=== PATIENT | female | born 1940 | race Two or more races ===

== ENCOUNTER 2019-02-14 23:14 | Inpatient (IN) | payer MEDICARE, MEDICAID ==
[~2019-02-14] VITALS: Ht 157.5 cm; Wt 65.3 kg
--- NOTE | 2019-02-14 23:45 | NUR ---
BIBDEDE FROM HOME FOR MEDICAL CLEARANCE. PER DAUGHTER, IS NOT MED COMPLAINT HX DM, AND PUSHED DAUGHTER AND STATES "I WILL KILL MYSELF IF YOU TAKE ME TO A HOSPITAL" PT WAS PLACED ON 5150 HOLD PER CLOTH SHRINKING TESTER. PT AOX2 RR EVEN AND UNLABORED. NO SOB NOTED. NO NVD AT THIS TIME. PT APPEARS COMFORTABLE AND COMPLIANT. WAITING FOR MD BADILLO.
--- NOTE | 2019-02-14 23:51 | NUR ---
LAB AT BEDSIDE FOR BLOOD DRAW
[2019-02-14 23:55] LABS: BASOPHILS # (AUTO) 0.1 /CMM (0.0-0.2); BASOPHILS % (AUTO) 1.2 % (0.0-2.0); EOSINOPHILS % (AUTO) 0.6 % (0.0-6.0); HEMATOCRIT 41 % (33-45); HEMOGLOBIN 13.5 g/dL (11.5-14.8); LYMPHOCYTES % (AUTO) 20.8 % (20.0-44.0); MEAN CORPUSCULAR HGB CONC 33 g/dl (31.0-36.0); MEAN CORPUSCULAR VOLUME 87 fL (82-100); MONOCYTES # (AUTO) 0.7 /CMM (0.1-1.30); MONOCYTES % (AUTO) 6.9 % (2.0-12.0); NEUTROPHILS # (AUTO) 6.9 /CMM (1.8-8.9); NEUTROPHILS % (AUTO) 70.5 % (43.0-81.0); PLATELET COUNT (AUTO) 264 /CMM (150-450); RED BLOOD CELL COUNT(AUTO) 4.71 MIL/uL (4.0-5.2); WHITE BLOOD COUNT (AUTO) 9.7 K/uL (4.3-11.0)
--- NOTE | 2019-02-15 00:08 | NUR ---
PROVIDED PT WITH UA CUP, PT RECEIVED INSTRUCTIONS AND VERBALIZED UNDERSTANDING.
[2019-02-15 00:09] LABS: ALANINE AMINOTRANSFERASE 27 U/L (12-78); ALBUMIN 3.8 g/dL (3.4-5.0); ALCOHOL, BLOOD < 3 mg/dL (0-0); ALKALINE PHOSPHATASE 94 U/L (46-116); ASPARTATE AMINOTRANSFERASE 22 U/L (15-37); BILIRUBIN,DIRECT 0.2 mg/dL (0.0-0.2); BILIRUBIN,TOTAL 0.7 mg/dL (0.2-1.0); CALCIUM, SERUM 9.4 mg/dL (8.5-10.1); CARBON DIOXIDE 26 mmol/L (21-32); CHLORIDE 104 mmol/L (98-107); CREATININE 1.1 mg/dL (0.6-1.3); GLUCOSE 172 mg/dL (74-106); SODIUM SERUM 140 mmol/L (136-145); TOTAL PROTEIN, SERUM 7.9 g/dL (6.4-8.2); UREA NITROGEN, BLOOD 27 mg/dL (7-18)
[2019-02-15 00:10] LABS: ACETAMINOPHEN 0 ug/ml (10-30); SALICYLATE 0.7 mg/dL (2.8-20.0)
--- NOTE | 2019-02-15 00:13 | NUR ---
URINE COLLECTED, CALLED LAB FOR DIRECTOR DATA ARCHITECTURE, SPOKE TO ROGER.
--- NOTE | 2019-02-15 00:18 | NUR ---
PT ASSIGNED TO 211-B
[2019-02-15 00:24] LABS: APPEARANCE,URINE Clear (CLEAR); BILIRUBIN,URINE Negative (NEGATIVE); BLOOD, URINE Negative Ery/uL (NEGATIVE); COLOR,URINE Yellow (YELLOW); KETONES,URINE 15 (NEGATIVE); LEUKOCYTE ESTERASE ,URINE Trace (NEGATIVE); NITRITE, URINE Negative (NEGATIVE); PROTEIN,URINE Negative (NEGATIVE); UGLUCOSE 500 MG/DL mg/dL (NEGATIVE); UROBILINOGEN,URINE 0.2 EU/dL (0.2)
--- NOTE | 2019-02-15 00:31 | NUR ---
REPORT GIVEN SANDEEP CASTRO.
--- NOTE | 2019-02-15 01:00 | NUR ---
ADMITTED A 78 Y/O FEMALE FROM HOME AND EVALUATED AT [facility], ON 5150 HOLD DTS AND DTS. PATIENT ADMITTING DX. OF PSYCHOSIS AND MEDICAL DX. OF DM. UPON FACE TO FACE EVALUATION, PATIENT APPEARED ALERT AND ORIENTED X 2, CALM, SILENT, COOPERATIVE, WITHDRAWN, NO SOB, NO ACUTE DISTRESS, BREATHING EVEN AND UNLABORED, NO S/S OF PAIN AND DISCOMFORT, HEAD TO TOE ASSESSMENT DONE. SKIN INTACT. PATIENT UNABLE TO SIGN PAPER WORKS, BELONGINGS COLLECTED FOR CONTRABAND CHECK. NOTIFIED DR. MONTALVO OF THE ADMISSION. DAUGHTER AWARE. KEPT CLEAN, DRY AND COMFORTABLE. WILL CONTINUE TO MONITOR [id number] FOR SAFETY.
[2019-02-15 01:09] LABS: BACTERIA,URINE Few /HPF (None Seen); RBC,URINE 0-2 /HPF (0-2); SQUAMOUS EPITHELIAL CELL,UR Rare /HPF (None Seen)
[2019-02-15] MEDS ORDERED: clonazePAM 0.5 MG TABLET PO PRN (01:30)
[2019-02-15] MEDS ORDERED: MAGNESIUM HYDROXIDE 30 ML UDC PO PRN (01:30)
[2019-02-15] MEDS ORDERED: ACETAMINOPHEN 325 MG TABLET PO PRN (01:30)
[2019-02-15] MEDS ORDERED: MAG HYDROX/AL HYDROX/SIMETH 30 ML UDC PO PRN (01:30)
[2019-02-15] MEDS ORDERED: TEMAZEPAM 7.5 MG CAPSULE PO PRN (01:30)
[2019-02-15] MEDS ORDERED: METF500S7 PO (01:36)
[2019-02-15] MEDS ORDERED: DAPA10TA PO (01:36)
[2019-02-15] MEDS ORDERED: IBUP-1953 PO (01:36)
[2019-02-15] MEDS ORDERED: BENZ2TAB7 PO (01:37)
--- NOTE | 2019-02-15 01:55 | NUR ---
GPS RN NOTE: PATIENT HAS URINE WBC = 11-20, LEFT MESSAGE TO DR. ALISA OCHOA TO RECONCILE MEDICATION. AWAITING CALL BACK
[2019-02-15 08:00] VITALS: BP 139/75
--- NOTE | 2019-02-15 13:48 | NUR ---
GPS/RN-NOTES DR. FERRIS SEEN THE PATIENT WITH VERBAL ORDER TO DO ACCU CHECK AC BREAKFAST WITH NO SLIDING SCALE COVERAGE.NOTED AND CARRIED OUT.
--- NOTE | 2019-02-15 15:14 | NUR ---
GROUP NOTE: Pt was present but was unable to participate in a meaningful group conversation as pt is confused, disoriented, and disorganized. Pt kept interrupting other pts while they were speaking and saying things that did not pertain to the group topic. Pt was asked several times to wait her turn to speak.
[2019-02-15 16:00] VITALS: BP 107/71
[2019-02-15] MEDS: BENZTROPINE MESYLATE (1 MG) 1 MG TABLET PO SCH (17:47)
--- NOTE | 2019-02-15 17:47 | NUR ---
GPS/RN-NOTES PATIENT IN DAY ROOM EATING DINNER ,CALM NO ACUTE DISTRESS NOTED. ALL NEEDS ATTENDED AND ANTICIPATED. ENDORSED TO THE CHARGE NURSE.
[2019-02-15] MEDS: HALOPERIDOL 5 MG TABLET PO SCH (17:55)
[2019-02-15 20:01] VITALS: BP 141/79
[2019-02-16 07:05] LABS: BASOPHILS % (AUTO) 0.5 % (0.0-2.0); EOSINOPHILS % (AUTO) 1.6 % (0.0-6.0); HEMATOCRIT 40 % (33-45); HEMOGLOBIN 13.4 g/dL (11.5-14.8); LYMPHOCYTES # (AUTO) 1.6 /CMM (0.8-4.8); LYMPHOCYTES % (AUTO) 19.8 % (20.0-44.0); MEAN CORPUSCULAR HGB CONC 33 g/dl (31.0-36.0); MEAN CORPUSCULAR VOLUME 86 fL (82-100); MONOCYTES # (AUTO) 0.6 /CMM (0.1-1.30); MONOCYTES % (AUTO) 7.8 % (2.0-12.0); NEUTROPHILS # (AUTO) 5.8 /CMM (1.8-8.9); NEUTROPHILS % (AUTO) 70.3 % (43.0-81.0); PLATELET COUNT (AUTO) 248 /CMM (150-450); RED BLOOD CELL COUNT(AUTO) 4.67 MIL/uL (4.0-5.2); WHITE BLOOD COUNT (AUTO) 8.3 K/uL (4.3-11.0)
[2019-02-16 07:11] LABS: ALANINE AMINOTRANSFERASE 26 U/L (12-78); ALBUMIN 3.3 g/dL (3.4-5.0); ALKALINE PHOSPHATASE 87 U/L (46-116); ASPARTATE AMINOTRANSFERASE 22 U/L (15-37); BILIRUBIN,TOTAL 0.7 mg/dL (0.2-1.0); CALCIUM, SERUM 8.8 mg/dL (8.5-10.1); CARBON DIOXIDE 25 mmol/L (21-32); CHLORIDE 105 mmol/L (98-107); CREATININE 0.9 mg/dL (0.6-1.3); GLUCOSE 140 mg/dL (74-106); POTASSIUM 3.8 mmol/L (3.5-5.1); SODIUM SERUM 139 mmol/L (136-145); TOTAL PROTEIN, SERUM 7.2 g/dL (6.4-8.2); UREA NITROGEN, BLOOD 30 mg/dL (7-18)
[2019-02-16 07:13] LABS: CHOLESTEROL 187 mg/dL (<200); HDL CHOLESTEROL 42 mg/dL (40-60); LDL 127 mg/dL (0-99); TRIGLYCERIDES 124 mg/dL (30-150)
[2019-02-16] MEDS: BLOOD SUGAR DIAGNOSTIC 1 EACH STRIP IN SCH (07:30)
[2019-02-16 08:04] VITALS: BP 122/65
[2019-02-16] MEDS: HALOPERIDOL 5 MG TABLET PO SCH ×2 (08:11→16:57)
[2019-02-16] MEDS: BENZTROPINE MESYLATE (1 MG) 1 MG TABLET PO SCH ×2 (08:11→16:57)
--- NOTE | 2019-02-16 09:44 | NUR ---
MIGUEL ÁNGEL contacted pts daughter Nataliia [phone] to discuss collateral information and discharge planning. Per daughter she stated that pt currently lives in her abetment with a roommate but due to pts decline Addendum: 02/16/19 at 1000 by KJ DEL ROSARIO she wishes for pt to be discharged to her home. Daughter also provided psychiatrist information and pipe threader information. Daughter also mentioned to SW that pt was on Haldol Dec 50mg and it was last administered 2 months ago after pt let her psychiatrist know she was fine and no longer needed it. MIGUEL ÁNGEL discussed pts treatment plan with daughter and daughter agreed to medication regimen and length of stay.
--- NOTE | 2019-02-16 10:00 | NUR ---
Arrived and received patient in bedroom sleeping. Patient is alert and oriented x2. Patient is primarily Thai speaking with some Jordanian. Patient is calm, cooperative, easily agitated at times, depressed and withdrawn. Patient is medication compliant. Administered scheduled medications as ordered. Redirected and reoriented patient as needed. Q15 minute safety and behavior checks as tolerated. Encouraged patient to attend group activities. Patient is in bedroom resting with no distress noted at this time. Will continue with plan of care.
--- NOTE | 2019-02-16 10:37 | NUR ---
DR. FERRIS GAVE AN ORDER TO CONTINUE METFORMIN 500 MG PO DAILY AND FARXIGA 10 MG PO.
--- NOTE | 2019-02-16 10:44 | NUR ---
INITIAL DISCHARGE PLAN: Per daughter Nataliia [phone] she wishes for pt to be discharged to her home at [address] [facility] [address]. SW will help form a safe and proper discharge in collaboration with daughter and MD.
--- NOTE | 2019-02-16 11:30 | NUR ---
Group note: Pt attended a group session on 02/16/19 at 11:30AM discussing their support systems. S: I have always been by myself. I do not need anyone to help me. O: Pt was present during the group session and was cooperative. Pt appeared to be in a depressed mood with an anxious affect. A: Pt understood that she needed to work with the people in her support system because they are working really hard to help her in the best way possible. Pt acknowledged that she cannot always manage her life on her own and there is no shame or weakness with accepting help. P: Pt will continue milieu treatment and medication stabilization.
[2019-02-16] MEDS: METFORMIN 500 MG TABLET PO SCH (11:34)
[2019-02-16 16:13] VITALS: BP 124/71
[2019-02-16 19:58] VITALS: BP 95/60
[2019-02-17] MEDS: BLOOD SUGAR DIAGNOSTIC 1 EACH STRIP IN SCH (07:53)
[2019-02-17 08:00] VITALS: BP 119/64
[2019-02-17] MEDS: METFORMIN 500 MG TABLET PO SCH (08:15)
[2019-02-17] MEDS: BENZTROPINE MESYLATE (1 MG) 1 MG TABLET PO SCH ×2 (08:15→16:36)
[2019-02-17] MEDS: HALOPERIDOL 5 MG TABLET PO SCH ×2 (08:15→16:36)
[2019-02-17] MEDS ORDERED: HALOPERIDOL DECANOATE IM 100 MG/ML AMPUL IM ONE (12:30)
--- NOTE | 2019-02-17 14:20 | NUR ---
GROUP NOTE: Group was held on 02/17/19 at 2:00pm, group topic was discharge planning. S: "My daughter and son in law are mad at me because they want me to go live with them, but I like my independence and I want to go live in my apartment. I eventually want to go live with them but I still feel like I am able to care for myself, maybe in 2 years I will be ready to move in with them but not now." A: pt appeared in a sad mood when speaking about her wishes to discharge home and her daughter being upset with her. O: Pt expressed concern with her discharge plan and gained awareness of her mental state. Pt expressed feeling better with medication and also being able to care for herself and recognized she needed to maintain appointments with her outside psychiatrist and be compliant with medication to avoid returning to the hospital and potentially losing her independence. P: pt will continue milieu treatment and continue medication stabilization. Addendum: 02/17/19 at 1433 by KJ DEL ROSARIO O: pt appeared in a sad mood when speaking about her wishes to discharge home and her daughter being upset with her. A: Pt expressed concern with her discharge plan and gained awareness of her mental state. Pt expressed feeling better with medication and also being able to care for herself and recognized she needed to maintain appointments with her outside psychiatrist and be compliant with medication to avoid returning to the hospital and potentially losing her independence.
[2019-02-17 16:00] VITALS: BP 127/65
[2019-02-17 20:00] VITALS: BP 123/58
[2019-02-18 08:00] VITALS: BP_SYST 129
[2019-02-18] MEDS: BLOOD SUGAR DIAGNOSTIC 1 EACH STRIP IN SCH (08:22)
[2019-02-18] MEDS: FARXIGA 10 MG PO SCH (08:22)
[2019-02-18] MEDS: HALOPERIDOL 5 MG TABLET PO SCH ×2 (08:23→16:19)
[2019-02-18] MEDS: METFORMIN 500 MG TABLET PO SCH (08:23)
[2019-02-18] MEDS: BENZTROPINE MESYLATE (1 MG) 1 MG TABLET PO SCH ×2 (08:24→16:19)
[2019-02-18 16:00] VITALS: BP 107/57
--- NOTE | 2019-02-18 19:28 | NUR ---
GPS/RN OPENING NOTES RECEIVED PATIENT IN BED. AWAKE, REQUIRE ASSISTANCE, IN ROOM, ABLE TO AMBULATE WITH SUPERVISION. WILL MONITOR EVER 15 MINUTES FOR SAFETY AND ANY BEHAVIOR CHANGES.
[2019-02-18 20:00] VITALS: BP 133/56
[2019-02-18 20:36] VITALS: BP 133/56
[2019-02-19] MEDS: BLOOD SUGAR DIAGNOSTIC 1 EACH STRIP IN SCH (07:38)
[2019-02-19 08:00] VITALS: BP 100/70
[2019-02-19] MEDS: FARXIGA 10 MG PO SCH (08:17)
[2019-02-19] MEDS: HALOPERIDOL 5 MG TABLET PO SCH ×2 (08:18→17:14)
[2019-02-19] MEDS: METFORMIN 500 MG TABLET PO SCH (08:19)
[2019-02-19] MEDS: BENZTROPINE MESYLATE (1 MG) 1 MG TABLET PO SCH ×2 (08:19→17:14)
[2019-02-19 16:00] VITALS: BP 126/66
[2019-02-19 19:58] VITALS: BP 103/52
[2019-02-20 08:00] VITALS: BP 121/67
[2019-02-20] MEDS: BLOOD SUGAR DIAGNOSTIC 1 EACH STRIP IN SCH (08:22)
[2019-02-20] MEDS: BENZTROPINE MESYLATE (1 MG) 1 MG TABLET PO SCH ×2 (08:23→17:43)
[2019-02-20] MEDS: HALOPERIDOL 5 MG TABLET PO SCH ×2 (08:23→17:43)
[2019-02-20] MEDS: METFORMIN 500 MG TABLET PO SCH (08:23)
[2019-02-20] MEDS: FARXIGA 10 MG PO SCH (08:26)
--- NOTE | 2019-02-20 08:32 | NUR ---
rn notes patient refused breakfast, BS-142 mg/dl, no coverage given, patient compliant scheduled medication. continued monitoring.
[2019-02-20 16:00] VITALS: BP 104/65
[2019-02-20 20:20] VITALS: BP 133/77
[2019-02-21] MEDS: BLOOD SUGAR DIAGNOSTIC 1 EACH STRIP IN SCH (07:41)
[2019-02-21 08:00] VITALS: BP 115/63
[2019-02-21] MEDS: METFORMIN 500 MG TABLET PO SCH (08:21)
[2019-02-21] MEDS: HALOPERIDOL 5 MG TABLET PO SCH (08:22)
[2019-02-21] MEDS: FARXIGA 10 MG PO SCH (08:22)
[2019-02-21] MEDS: BENZTROPINE MESYLATE (1 MG) 1 MG TABLET PO SCH (08:22)
--- NOTE | 2019-02-21 15:00 | NUR ---
MIGUEL ÁNGEL contacted pts daughter Nataliia [phone] and informed her pts 5250 hold was not upheld and was being discharged on this present day. Daughter agreed with certified juvenile probation officer stating pt is ready to go home. Daughter stated that she would be picking pt up at 1530 and will be transporting pt home.
--- NOTE | 2019-02-21 15:02 | NUR ---
DISCHARGE NOTE: Pt will be discharged at 3:30pm home to [address] [facility] [address]. Pts daughter Nataliia [phone] will be picking pt up and transporting home. Daughter agrees with discharge plan. Pts mood is euthymic with congruent affect pt denied suicidal/homicidal ideation and denied visual/auditory hallucinations. SW faxed clinical information and medication list to Psychiatrist: Dr. Quincy Blandon [facility] [address] [facility] [address] and to [facility] Address: [address] [facility] [facility] [address] [place] [address] . Pt will follow up with Emission Technician: Dr. Salvador Hobson Address: [address] [place] [address] . The multidisciplinary exitcare form was done, printed, signed, and given to the patient.
--- NOTE | 2019-02-21 15:12 | NUR ---
GPS STUDENT SERVICES REPRESENTATIVE NOTE: PT DISCHARGE BACK HOME PICKED UP BY PT DAUGHTER BATSHEVA. PT IN STABLE CONDITION A/O X2,AMBULATORY SELF CARE. NO S/S DISTRESS NOTED PT VSS STABLE, DENIES C/O PAIN OT ANY DISCOMFORT . PT DENIES SI/HI AVH.PRESCRIPTION GIVEN AND EXPLAIN ALL BELONGINGS AND VALUABLES RETURNED TO PT. PT SKIN ASSESSMENT DONE SKIN INTACT. PT COOPERATIVE AND COMPLIANT WITH TX, HOLD WAS UPHELD BY HILARIA Varner. ORDER DC PT HOME .
[2019-02-22] MEDS ORDERED: METFORMIN 500 MG TABLET PO SCH (09:00)
== END 2019-02-21 15:50 | disposition home or self-care (01) | DRG 885 ==
LOC: ER 23:16 → GPS 02-15 00:26
PROVIDERS: ADMIT Psychiatry & Neurology Psychiatry; ATTEND Family Medicine
DX: F20.0 Paranoid schizophrenia (principal); E11.65 Type 2 diabetes mellitus with hyperglycemia; E44.1 Mild protein-calorie malnutrition; F41.9 Anxiety disorder, unspecified; E78.5 Hyperlipidemia, unspecified; R79.89 Other specified abnormal findings of blood chemistry; E88.09 Other disorders of plasma-protein metabolism, not elsewhere classified; Z68.26 Body mass index [BMI] 26.0-26.9, adult; Z79.84 Long term (current) use of oral hypoglycemic drugs
CPT/HCPCS: 36415; 80048-TC; 80053-TC; 80061-TC; 80076-TC; 80305; 81000-TC; 82962-TC; 85025-TC; 87081-TC; 87086-TC; G0480; J1631